=== PATIENT | female | born 1970 ===

== ENCOUNTER 2018-02-22 23:24 | Emergency (ER) | payer SELFPAY ==
[2018-02-23 01:27] LABS: Basophils % (Auto) 0.4 % (0.0-1.8); Eosinophils % (Auto) 0.3 % (0.0-4.3); Hematocrit 29.6 % (30.3-42.9); Hemoglobin 9.3 gm/dl (10.1-14.3); Lymphocytes # (Auto) 0.5 K/mm3 (1.2-5.4); Lymphocytes % (Auto) 5.7 % (13.4-35.0); Mean Corpuscular HGB Conc 32 % (30-34); Monocytes # (Auto) 0.5 K/mm3 (0.0-0.8); Monocytes % (Auto) 5.6 % (0.0-7.3); Platelet Count 540 K/mm3 (140-440); Red Blood Count 4.38 M/mm3 (3.65-5.03)
[2018-02-23 01:29] LABS: Mean Corpuscular Hemoglobin 21 pg (28-32); Mean Corpuscular Volume 68 fl (79-97); Red Cell Distribution Width 20.4 % (13.2-15.2)
[2018-02-23 01:41] LABS: BUN/Creatinine Ratio 10; Blood Urea Nitrogen 7 mg/dL (7-17); Calcium 9.1 mg/dL (8.4-10.2); Hemolysis Index 0
--- NOTE | 2018-02-23 02:02 | Cat Scan Report ---
FINAL REPORT EXAM: CT HEAD/BRAIN WO CON HISTORY: headache COMPARISON: None available. TECHNIQUE: Axial images obtained skull base through vertex. FINDINGS: No acute intracranial hemorrhage, midline shift or pathologic extra axial fluid collection. Ventricles and cisterns are normal in size and configuration for the patient's age. Glasgow-white differentiation preserved. Calvarium grossly intact. Mild mucosal thickening the visualized paranasal sinuses. Mastoid air cells are clear. IMPRESSION: No grossly acute intracranial abnormality.
[2018-02-23] MEDS ORDERED: NACL 0.9% 1000 ML 1,000 ML IV ONE (11:20)
[2018-02-23] MEDS ORDERED: TORADOL IV ONE (11:20)
[2018-02-23] MEDS ORDERED: ZOFRAN IV ONE (11:21)
[2018-02-23] MEDS ORDERED: ANTIVERT PO ONE (11:21)
--- NOTE | 2018-02-23 11:27 | Emergency Department Report ---
Blank Doc - Documentation Documentation: Patient is a 50-year-old female who has been off of her blood pressure medicines for approximately 6 months has developed a headache for the past 3 days. Patient states is a global headache is pounding throbbing sit 7 out of 10 in severity. Patient has some mild nausea but no vomiting. Patient states that she has some mild dizziness as well. Patient took her blood pressure medicine before she arrived. Blood pressure was improved on arrival.
[2018-02-23] MEDS ORDERED: K-DUR PO ONE (12:01)
--- NOTE | 2018-02-23 13:37 | Emergency Department Report ---
ED Headache HPI - General Chief Complaint: Dizziness Stated Complaint: PRESSURE UP Time Seen by Provider: 02/23/18 11:15 - History of Present Illness Initial Comments: 47-year-old female past medical history hypertension, asthma, hypothyroidism presents for complaint of headache and left arm numbness for 2 days. Patient is awake alert and oriented 3. At this point in assessment patient was already given pain medicine fluid and meclizine. States she feels better than before. Denies any current shortness of breath chest pain paresthesias. Headache 4-10 at this moment. Denies any blurry vision. Denies any current vertigo or dizziness sensation. Allergies/Adverse Reactions: Allergies No Known Allergies Allergy (Unverified 02/23/18 00:59) Home Medications: Ambulatory Orders Acetaminophen [Acetaminophen TAB] 500 mg PO Q6HR PRN #30 tablet 02/23/18 Wsqjk-Nzrcd-Skrm 10-320-25 mg 1 tab PO DAILY 02/23/18 Amlodipine/Valsartan/Hcthiazid [Rfzzx-Estuy-Npcf 10-320-25 mg] 1 each PO QDAY # 30 tablet 02/23/18 Levothyroxine [Synthroid] 50 mcg PO QAM #30 tablet 02/23/18 ED Review of Systems ROS: Stated complaint: PRESSURE UP Other details as noted in HPI Constitutional: denies: chills, fever Eyes: denies: eye pain, eye discharge, vision change ENT: denies: ear pain, throat pain Respiratory: denies: cough, shortness of breath, wheezing Cardiovascular: denies: chest pain, palpitations Endocrine: no symptoms reported Gastrointestinal: denies: abdominal pain, nausea, diarrhea Genitourinary: denies: urgency, dysuria, discharge Musculoskeletal: denies: back pain, joint swelling, arthralgia Skin: denies: rash, lesions Neurological: headache. denies: weakness, paresthesias Psychiatric: denies: anxiety, depression Hematological/Lymphatic: denies: easy bleeding, easy bruising ED Past Medical Hx - Past Medical History Hx Hypertension: Yes Hx Asthma: Yes Additional medical history: Thyroid Ds - Surgical History Past Surgical History?: No - Social History Smoking Status: Never Smoker Substance Use Type: None - Medications Home Medications: Home Medications Medication Instructions Recorded Confirmed Last Taken Type Acetaminophen [Acetaminophen TAB] 500 mg PO Q6HR PRN #30 tablet 02/23/18 Unknown Rx Jqulx-Dkpab-Fczq 10-320-25 mg 1 tab PO DAILY 02/23/18 02/23/18 Unknown History Amlodipine/Valsartan/Hcthiazid 1 each PO QDAY #30 tablet 02/23/18 Unknown Rx [Tfonf-Nxbyi-Prlv 10-320-25 mg] Levothyroxine [Synthroid] 50 mcg PO QAM #30 tablet 02/23/18 Unknown Rx ED Physical Exam - General Limitations: No Limitations General appearance: alert, in no apparent distress - Head Head exam: Present: atraumatic, normocephalic - Eye Eye exam: Present: normal appearance - ENT ENT exam: Present: mucous membranes moist - Neck Neck exam: Present: normal inspection - Respiratory Respiratory exam: Present: normal lung sounds bilaterally. Absent: respiratory distress - Cardiovascular Cardiovascular Exam: Present: regular rate, normal rhythm. Absent: systolic murmur, diastolic murmur, rubs, gallop - GI/Abdominal GI/Abdominal exam: Present: soft, normal bowel sounds - Extremities Exam Extremities exam: Present: normal inspection - Back Exam Back exam: Present: normal inspection - Neurological Exam Neurological exam: Present: alert, oriented X3, CN II-XII intact, normal gait - Expanded Neurological Exam Expanded Patient oriented to: Present: person, place, time Cranial nerves: EOM's Intact: Normal, Facial Sensation: Normal Cerebellar function: Finger to Nose: Normal, Heel to [place]: Normal, Romberg: Normal Sensory exam: Upper Extremity Light Touch: Normal, Lower Extremity Light Touch: Normal Motor strength exam: RUE: 5, LUE: 5, RLE: 5, LLE: 5 Best Eye Response ([place]): (4) open spontaneously Best Motor Response ([place]): (6) obeys commands Best Verbal Response ([place]): (5) oriented Kayleen Total: 15 - Psychiatric Psychiatric exam: Present: normal affect, normal mood - Skin Skin exam: Present: warm, dry, intact, normal color. Absent: rash ED Course Vital Signs 02/23/18 02/23/18 00:51 11:56 Temperature 98.7 F Pulse Rate 117 H Respiratory 16 16 Rate Blood Pressure 117/79 O2 Sat by Pulse 100 Oximetry ED Medical Decision Making - Lab Data Result diagrams: 02/23/18 01:04 02/23/18 01:04 - Medical Decision Making A/P: Headache, dizziness, mild hypokalemia 1-CT unremarkable. I advised patient to drink water with electrolytes replenishment of potassium and informed her she is slightly anemic. Patient states she already takes iron supplementation. Denies any current bleeding at this time 2-refill on hypertension medicines and Synthroid 3-Tylenol when necessary 4-as per my discussion with Dr. Rodriguez will give patient follow up with neurology. Cranial nerves 2, 3, 4, 5, 6, 7, 8,10, 11, 12 intact on clinical exam, patient is fully lucid awake alert and oriented 3 conversant. Denies any upper or lower extremity paresthesias and has 5/5 strength in bilateral upper and lower extremities on clinical exam. NIH scale 0 Critical care attestation.: If time is entered above; I have spent that time in minutes in the direct care of this critically ill patient, excluding procedure time. ED Disposition Clinical Impression: Headache Qualifiers: Headache type: unspecified Headache chronicity pattern: acute headache Intractability: not intractable Qualified Code(s): R51 - Headache Disposition: DC- TO HOME OR SELFCARE Is pt being admited?: No Does the pt Need Aspirin: No Condition: Good Instructions: Acute Headache (ED), Hypertension (ED) Prescriptions: Acetaminophen [Acetaminophen TAB] 500 mg PO Q6HR PRN #30 tablet PRN Reason: Headache Amlodipine/Valsartan/Hcthiazid [Koiob-Qtoib-Pnlp 10-320-25 mg] 1 each PO QDAY # 30 tablet Levothyroxine [Synthroid] 50 mcg PO QAM #30 tablet Referrals: NABIL UMANZOR MD [Staff Physician] - 3-5 Days Forms: Work/School Release Form(ED) Time of Disposition: 13:48 - Assessment Assessment Interval: Baseline - Level of Consciousness 1a. Level of Consciousness: alert - LOC Questions 1b. LOC Questions: answers correctly - LOC Command 1c. LOC Commands: performs tasks correctly - Best Gaze 2. Best Gaze: normal - Visual 3. Visual: no visual loss - Facial Palsy 4. Facial Palsy: normal symmetrical movement - Motor Arm 5b. Motor Arm Right: no drift 5a. Motor Arm Left: no drift - Motor Leg 6a. Motor Leg Left: no drift 6b. Motor Leg Right: no drift - Limb Ataxia 7. Limb Ataxia: absent - Sensory 8. Sensory: normal - Best Language 9. Best Language: no aphasia - Dysarthria 10. Dysarthria: normal - Extinction and Inattention 11. Extinction/Inattention: no abnormality - Scoring Total Score: 0 Stroke Severity: No Stroke Symptoms
[2018-02-23] MEDS ORDERED: TYLENOL PO ONE (13:54)
[2018-02-23 13:55] VITALS: BP 136/95
== END 2018-02-23 14:23 | disposition home or self-care (01) ==
LOC: ED 23:24
DX: R51 Headache (principal); R42 Dizziness and giddiness; I10 Essential (primary) hypertension
CPT/HCPCS: 36415; 70450; 80048; 82962; 84703; 85025; 93005; 93010; 96361; 96374; 96375; 99284; J1885; J2405; J7030